=== PATIENT | male | born 1990 | race Hispanic/Latino ===

== ENCOUNTER 2020-06-24 10:32 | Emergency (ER) | payer OTHER ==
[2020-06-24] MEDS ORDERED: KETOROLAC TROMETHAMINE 60 MG/2 ML VIAL ONE ×2 (11:17→12:00)
== END 2020-06-24 12:21 | disposition home or self-care (01) ==
LOC: EDH 10:32
DX: S43.401A Unspecified sprain of right shoulder joint, initial encounter (principal); W18.39XA Other fall on same level, initial encounter; Y93.89 Activity, other specified; Y92.89 Other specified places as the place of occurrence of the external cause; Y99.8 Other external cause status; Z72.0 Tobacco use
CPT/HCPCS: 73030; 96372; 99283; J1885